=== PATIENT | female | born 1995 | race Caucasian/White ===

== ENCOUNTER 2021-07-10 17:14 | Emergency (ER) | payer MEDICAID ==
[~2021-07-10] VITALS: Ht 154.9 cm; Wt 62.6 kg
[2021-07-10 17:26] VITALS: BP 119/65
--- NOTE | 2021-07-10 17:30 | NUR ---
BIB SELF C/O CHEST TIGHTNESS 3/10 AND FATIGUE FOR 3 DAYS. OXYGEN SATURATION IN ROOM AIR IS AT 95%. RESPIRATION REGULAR AND UNLABORED. WILL CONTINUE TO MONITOR THE PATIENT.
--- NOTE | 2021-07-10 17:50 | NUR ---
RAPID INFLUENZA AND COVID ANTIGEN SWABS DONE AND SENT TO THE LAB
--- NOTE | 2021-07-10 18:38 | NUR ---
Patient discharged to home in stable condition. Written and verbal after care instructions given. Patient verbalizes understanding of instruction.
--- NOTE | 2021-07-10 18:39 | NUR ---
[facility]
== END 2021-07-10 18:38 | disposition home or self-care (01) ==
LOC: ER 18:36
DX: U07.1 COVID-19 (principal)
CPT/HCPCS: 71045; 87426; 87804; 93005; 99285; C9803